=== PATIENT | female | born 1965 | race Caucasian/White ===

== ENCOUNTER 2018-03-30 13:27 | Emergency (ER) | payer MEDICAID ==
[~2018-03-30] VITALS: Ht 162.6 cm; Wt 61.7 kg
[2018-03-30 13:39] VITALS: Ht 162.6 cm; Wt 61.7 kg
[2018-03-30 14:42] VITALS: BP 150/93
== END 2018-03-30 15:11 | disposition home or self-care (01) ==
LOC: ED 13:27
DX: S43.401A Unspecified sprain of right shoulder joint, initial encounter (principal); M24.9 Joint derangement, unspecified; I10 Essential (primary) hypertension; Z88.0 Allergy status to penicillin; W18.39XA Other fall on same level, initial encounter; Y93.89 Activity, other specified; Y92.89 Other specified places as the place of occurrence of the external cause; Y99.8 Other external cause status
CPT/HCPCS: Q0092